=== PATIENT | male | born 1940 | race Caucasian/White ===

== ENCOUNTER 2021-12-15 08:48 | Outpatient (CLI) | payer MEDICARE ==
[2021-12-15 09:26] LABS: BASOPHILS # (AUTO) 0.1 X10'3 (0-0.2); BASOPHILS % (AUTO) 0.9 % (0-1); EOSINOPHILS # (AUTO) 0.1 X10'3 (0-0.9); EOSINOPHILS % (AUTO) 1.1 % (0-6); HEMATOCRIT 42.1 % (42.0-52.0); LYMPHOCYTES # (AUTO) 1.1 X10'3 (1.1-4.8); LYMPHOCYTES % (AUTO) 15.4 % (21-51); MEAN CORPUSCULAR HGB CONC 35.6 g/dL (33.0-36.5); MEAN CORPUSCULAR VOLUME 89.8 FL (78-98); MEAN PLATELET VOLUME 9.7 FL (7.4-10.4); MONOCYTES # (AUTO) 0.8 X10'3 (0-0.9); MONOCYTES % (AUTO) 11.6 % (2-12); NEUTROPHILS # (AUTO) 5.1 X10'3 (1.8-7.7); PLATELET COUNT 176 X10'3 (140-440); RED BLOOD COUNT 4.69 X10'6 (4.70-6.10); RED CELL DISTRIBUTION WIDTH 13.8 % (11.5-14.5); WHITE BLOOD COUNT 7.2 X10'3 (4.5-11.0)
[2021-12-15 09:38] LABS: ALANINE AMINOTRANSFERASE 20 U/L (12-78); ALBUMIN 3.4 G/DL (3.4-5.0); ALBUMIN/GLOBULIN RATIO 1.2 (1.1-1.5); ALKALINE PHOSPHATASE 67 IU/L (46-116); ANION GAP 8 (8-16); ASPARTATE AMINO TRANSFERASE 14 U/L (10-37); BILIRUBIN,TOTAL 2.1 MG/DL (0.1-1.0); BLOOD UREA NITROGEN 14 MG/DL (7-18); BUN/CREATININE RATIO 20.6 (5.4-32.0); CALCIUM 8.6 MG/DL (8.5-10.1); CHLORIDE 107 MMOL/L (99-107); CREATININE 0.68 MG/DL (0.60-1.10); GLUCOSE 207 MG/DL (70-104); SODIUM 141 MMOL/L (135-145); TOTAL CARBON DIOXIDE 26.5 MMOL/L (24-32); TOTAL PROTEIN 6.3 G/DL (6.4-8.2); eGFR > 90 ML/MIN
[2021-12-15 11:01] LABS: APTT 25 SECONDS (22-32)
[2021-12-28] MEDS ORDERED: LISI20TA28 PO (11:03)
[2021-12-28] MEDS ORDERED: METF-900 PO (11:03)
[2021-12-28] MEDS ORDERED: ATOR80TA PO (11:03)
[2021-12-28] MEDS ORDERED: AMLO2.5T2 PO (11:03)
[2021-12-28] MEDS ORDERED: ASPI-1071 PO (11:03)
[2022-01-02] MEDS ORDERED: LOP25T PO (14:24)
[2022-01-02] MEDS ORDERED: CEPH-585 PO (14:33)
== END 2021-12-15 23:59 | disposition home or self-care (01) ==
LOC: VAS 08:48
PROVIDERS: ATTEND Internal Medicine Cardiovascular Disease
DX: Z01.818 Encounter for other preprocedural examination (principal); I65.23 Occlusion and stenosis of bilateral carotid arteries; I51.7 Cardiomegaly; I70.0 Atherosclerosis of aorta; I70.293 Other atherosclerosis of native arteries of extremities, bilateral legs; M47.814 Spondylosis without myelopathy or radiculopathy, thoracic region; I35.0 Nonrheumatic aortic (valve) stenosis; Z87.891 Personal history of nicotine dependence; Z79.82 Long term (current) use of aspirin; Z79.899 Other long term (current) drug therapy
CPT/HCPCS: 36415; 71046; 71275; 74174; 80053; 85025; 85610; 85730; 93880; 94010; 94727; 94729; J3490; Q9967

== ENCOUNTER 2021-12-16 14:43 | Outpatient (CLI) | payer MEDICARE ==
[~2021-12-16] VITALS: Ht 170.2 cm; Wt 105.1 kg
[2021-12-16 17:26] VITALS: BP 163/65
--- NOTE | 2021-12-16 17:27 | NUR ---
Patient and his were in the [facility] today to consult with Dr. Lee, Dr. Robyn Hernández and Dr. Quintana. [facility] test completed. Vital signs measured. Patient education reviewed and questions answered.
[2021-12-28] MEDS ORDERED: AMLO2.5T2 PO (11:03)
[2021-12-28] MEDS ORDERED: ASPI-1071 PO (11:03)
[2021-12-28] MEDS ORDERED: METF-900 PO (11:03)
[2021-12-28] MEDS ORDERED: LISI20TA28 PO (11:03)
[2021-12-28] MEDS ORDERED: ATOR80TA PO (11:03)
[2022-01-02] MEDS ORDERED: LOP25T PO (14:24)
[2022-01-02] MEDS ORDERED: CEPH-585 PO (14:33)
== END 2021-12-16 23:59 | disposition home or self-care (01) ==
LOC: TAVR 14:43 → EDUNIT# 15:00 → TAVR 23:59
PROVIDERS: ATTEND Internal Medicine Cardiovascular Disease
DX: I35.0 Nonrheumatic aortic (valve) stenosis (principal); R06.02 Shortness of breath; I65.29 Occlusion and stenosis of unspecified carotid artery; I51.7 Cardiomegaly; I70.0 Atherosclerosis of aorta; M47.814 Spondylosis without myelopathy or radiculopathy, thoracic region
CPT/HCPCS: 71275; 74174; J3490